=== PATIENT | male | born 1950 | race Caucasian/White ===

== ENCOUNTER 2018-09-15 09:02 | Emergency (ER) | payer MEDICARE ==
[2018-09-15 09:16] VITALS: BP 133/80
--- NOTE | 2018-09-15 09:38 | UC ---
Laceration HPI - HPI Summary HPI Summary: small laceration left big toe x 2 hrs cut his toe as he was trimming his toes small cut but could not stop the bleeding pt. is no Eliquis - History Of Current Complaint Chief Complaint: UCLaceration Stated Complaint: LAC ON TOE Time Seen by Provider: 09/15/18 09:04 Hx Obtained From: Patient Laceration Location: Toe - left great toe Mechanism Of Injury: Sharp Trauma Onset/Duration: Sudden Onset, Lasting Hours - 2, Still Present Severity: Moderate Pain Intensity: 0 - Allergies/Home Medications Allergies/Adverse Reactions: Allergies Allergy/AdvReac Type Severity Reaction Status Date / Time hydrocodone Allergy Swelling Verified 09/15/18 09:16 Of Face,Lips,& Throat Home Medications: Home Medications Amlodipine Besylate [Amlodipine 2.5 mg tab] 2.5 mg PO DAILY 09/15/18 [History Confirmed 09/15/18] Clorazepate TAB* [Tranxene TAB*] 7.5 mg PO DAILY PRN 09/15/18 [History Confirmed 09/15/18] Multivitamin [Multivitamins] 1 cap PO DAILY 09/15/18 [History Confirmed 09/15/18 ] PMH/Surg Hx/FS Hx/Imm Hx - Additional Past Medical History Additional PMH: bladder ca Cardiovascular History: Atrial Fibrillation - Surgical History Surgical History: Yes Surgery Procedure, Year, and Place: bladder tumor removed (CYSTOSCOPIES X2);. appendectomy. CABG. AVR - Family History Known Family History: Positive: None, Cardiac Disease, Hypertension Family History: CAD - Social History Alcohol Use: None Alcohol Amount: 4 drinks a day Substance Use Type: None Smoking Status (MU): Former Smoker Type: Cigarettes Amount Used/How Often: 2-3 cigarettes daily Have You Smoked in the Last Year: Yes When Did the Patient Quit Smoking/Using Tobacco: TRIED TO QUIT 03/2015 - Immunization History Most Recent Influenza Vaccination: 2013 Most Recent Tetanus Shot: unknown Most Recent Pneumonia Vaccination: 7-8 years ago Review of Systems All Other Systems Reviewed And Are Negative: Yes Constitutional: Positive: Negative Skin: Positive: Negative Eyes: Positive: Negative ENT: Positive: Negative Respiratory: Positive: Negative Cardiovascular: Positive: Negative Is Patient Immunocompromised?: No Physical Exam Triage Information Reviewed: Yes Appearance: Well-Appearing, No Pain Distress, Well-Nourished Vital Signs: Initial Vital Signs Temp 97.4 F 03/22/19 09:09 Pulse 72 09/15/18 09:09 Resp 14 09/15/18 09:09 BP 133/80 09/15/18 09:09 Pulse Ox 100 09/15/18 09:09 Vital Signs Reviewed: Yes Eye Exam: Normal Eyes: Positive: Conjunctiva Clear ENT: Positive: Normal ENT inspection, Hearing grossly normal, Pharynx normal Neck: Positive: Supple, Nontender, No Lymphadenopathy Respiratory: Positive: Chest non-tender, Lungs clear, Normal breath sounds Cardiovascular: Positive: RRR, No Murmur, Pulses Normal Skin: Positive: Other - small laceration left big toe , no need for repair bleeding was stopped by applying pressure pressure dressing was placed Laceration Course/Dx - Diagnosis Provider Diagnosis: Laceration of toe Discharge - Sign-Out/Discharge Documenting (check all that apply): Patient Departure All imaging exams completed and their final reports reviewed: No Studies - Discharge Plan Condition: Stable Disposition: HOME Patient Education Materials: Laceration Without Closure (ED) Referrals: Tremayne Hitchcock MD [Primary Care Provider] - If Needed Additional Instructions: apply pressure if started bleeding again follow up as needed - Billing Disposition and Condition Condition: STABLE Disposition: Home
== END 2018-09-15 09:32 | disposition home or self-care (01) ==
LOC: UCEAST 09:02
DX: S91.312A Laceration without foreign body, left foot, initial encounter (principal); Z87.891 Personal history of nicotine dependence; Z88.5 Allergy status to narcotic agent; W22.8XXA Striking against or struck by other objects, initial encounter; Y92.9 Unspecified place or not applicable
CPT/HCPCS: 99211; G0463

== ENCOUNTER 2018-12-24 13:43 | Emergency (ER) | payer MEDICARE ==
--- NOTE | 2018-12-24 14:14 | ED ---
HPI Chest Pain - HPI Summary HPI Summary: 68 year old M presenting to [facility] with a chief complaint of grabbing chest pain radiating across his chest lasting for 30 minutes at 21:30 last night while making dinner. Now, patient is having chest tightness and back pain. The patient rates the pain 1/10 in severity. Symptoms aggravated by nothing. Symptoms alleviated by nothing. Patient denies nausea, diaphoresis. - History of Current Complaint Chief Complaint: EDChestPainROMI Time Seen by Provider: 12/24/18 14:05 Hx Obtained From: Patient Onset/Duration: Started Hours Ago - 21:30 yesterday, Still Present Timing: Intermittent, Lasting Minutes - 30 Current Severity: Mild Pain Intensity: 1 Pain Scale Used: 0-10 Numeric Character: Other: - grabbing Aggravating Factor(s): Nothing Alleviating Factor(s): Nothing Associated Signs and Symptoms: Positive: Negative - nausea, diaphoresis, Other: - chest tightness, back pain - Additional Pertinent History Primary Care Physician: CHARLENE - Allergy/Home Medications Allergies/Adverse Reactions: Allergies Allergy/AdvReac Type Severity Reaction Status Date / Time hydrocodone Allergy Swelling Verified 09/15/18 09:16 Of Face,Lips,& Throat Home Medications: Home Medications Rivaroxaban TAB(*) [Xarelto 20 mg] 20 mg PO DAILY 12/24/18 [History Confirmed ] PMH/Surg Hx/FS Hx/Imm Hx Previously Healthy: No Endocrine/Hematology History: Reports: Hx Anemia Denies: Hx Diabetes, Hx Thyroid Disease Cardiovascular History: Reports: Hx Angina, Hx Atrial Fibrillation, Hx Congestive Heart Failure - MAR 2015, Hx Hypertension, Hx Valvular Heart Disease - AORTIC BICUSPID Denies: Hx Coronary Artery Disease, Hx Hypercholesterolemia, Hx Myocardial Infarction, Hx Pacemaker/ICD Comment Only: Other Cardiovascular Problems/Disorders - A-FIB Respiratory History: Reports: Hx Pneumonia, Other Respiratory Problems/ Disorders - pulmonary nodule 04/05/16 admission Denies: Hx Asthma, Hx Chronic Obstructive Pulmonary Disease (COPD) History: Reports: Hx Benign Prostatic Hyperplasia, Other Problems/ Disorders - enlarged prostate, history bladder cancer Denies: Hx Dialysis, Hx Renal Disease Musculoskeletal History: Denies: Hx Arthritis, Hx Rheumatoid Arthritis, Hx Osteoporosis Sensory History: Reports: Hx Contacts or Glasses, Hx Glaucoma - borderline, Hx Hearing Problem - tinnitis Denies: Hx Hearing Aid Opthamlomology History: Reports: Hx Contacts or Glasses, Hx Glaucoma - borderline Neurological History: Denies: Hx Seizures, Hx Transient Ischemic Attacks (TIA) Psychiatric History: Reports: Hx Substance Abuse - ETOH Denies: Hx Panic Disorder - Cancer History Cancer Type, Location and Year: bladder - Surgical History Surgery Procedure, Year, and Place: bladder tumor removed (CYSTOSCOPIES X2);. appendectomy. CABG. AVR - Immunization History Date of Tetanus Vaccine: Out of date Date of Influenza Vaccine: Fall 2012 Infectious Disease History: No Infectious Disease History: Denies: Hx Shingles, Hx Tuberculosis, Traveled Outside the [place] in Last 30 Days - Family History Known Family History: Positive: Cardiac Disease, Hypertension Family History: CAD - Social History Alcohol Use: None Alcohol Amount: 4 drinks a day Hx Substance Use: No Substance Use Type: Reports: None Hx Tobacco Use: Yes Smoking Status (MU): Former Smoker Type: Cigarettes Amount Used/How Often: 2-3 cigarettes daily Have You Smoked in the Last Year: Yes Review of Systems Negative: Skin Diaphoresis Positive: Chest Pain Negative: Nausea Positive: Other - back pain All Other Systems Reviewed And Are Negative: Yes Physical Exam - Summary Physical Exam Summary: Appearance: The patient is well-nourished in no acute distress and in no acute pain. Skin: The skin is warm and dry and skin color reflects adequate perfusion. HEENT: The head is normocephalic and atraumatic. The pupils are equal and reactive. The conjunctivae are clear and without drainage. Nares are patent and without drainage. Mouth reveals moist mucous membranes and the throat is without erythema and exudate. The external ears are intact. The ear canals are patent and without drainage. The tympanic membranes are intact. Neck: The neck is supple with full range of motion and non-tender. There are no carotid bruits. There is no neck vein distension. Respiratory: Chest is non-tender. Lungs are clear to auscultation and breath sounds are symmetrical and equal. Cardiovascular: Heart is regular rate and rhythm. There is no murmur or rub auscultated. There is no peripheral edema and pulses are symmetrical and equal. Abdomen: The abdomen is soft and non-tender. There are normal bowel sounds heard in all four quadrants and there is no organomegaly palpated. Musculoskeletal: There is no back tenderness noted. Extremities are non-tender with full range of motion. There is good capillary refill. There is no peripheral edema or calf tenderness elicited. Neurological: Patient is alert and oriented to person, place and time. The patient has symmetrical motor strength in all four extremities. Cranial nerves are grossly intact. Deep tendon reflexes are symmetrical and equal in all four extremities. Psychiatric: The patient has an appropriate affect and does not exhibit any anxiety or depression Triage Information Reviewed: Yes Vital Signs On Initial Exam: Initial Vitals Temp Pulse Resp BP Pulse Ox 96.9 F 75 18 146/84 100 12/24/18 13:53 12/24/18 13:53 12/24/18 13:53 12/24/18 13:53 12/24/18 13:53 Vital Signs Reviewed: Yes Diagnostics - Vital Signs Vital Signs Temp Pulse Resp BP Pulse Ox 12/24/18 13:53 96.9 F 75 18 146/84 100 - Laboratory Result Diagrams: 12/24/18 14:05 12/24/18 14:05 Lab Statement: Any lab studies that have been ordered have been reviewed, and results considered in the medical decision making process. - Radiology CXR Radiology Interpretation Completed By: Radiologist Summary of Radiographic Findings: HYPERINFLATED LUNG CASTAÑEDA. NO DEFINITE PNEUMONIA IS NOTED. ED physician has reviewed this report. - EKG 1347 Cardiac Rate: NL - 74 BPM EKG Rhythm: Atrial Fibrillation EKG Comparison: No Significant Change - 06/15/16 Summary of EKG Findings: Atrial fibrillation with controlled ventricular response. Unchanged from 06/15/16 Chest Pain Course/Dx - Course Course Of Treatment: Mr. Freed presented having had a severe back radiating into the front chest pain last evening at 2130. He had been working strenuously earlier in the day. The pain resolved but he continues with a tightness in the lower part of his neck and upper back and front of the upper chest. He was nontoxic in appearance with stable vital signs. EKG was unchanged from his previous in 2016 aside from the fact that he is in controlled atrial fibrillation now. He has been in controlled atrial fibrillation previously and an EKG in 2015 looks very similar. I could not reproduce the pain. He was kept on a monitor and observed while labs including a delayed troponin were obtained. On re-eval he was no longer complaining of the pain. I think this is most likely a musculoskeletal pain. I don't think anything dangerous is happening but I recommended he follow-up tomorrow with his PCP for further evaluation. - Diagnoses Provider Diagnoses: Chest pain Discharge - Sign-Out/Discharge Documenting (check all that apply): Patient Departure - Discharge Patient Received Moderate/Deep Sedation with Procedure: No - Discharge Plan Condition: Stable Disposition: HOME Patient Education Materials: Chest Pain (ED) Referrals: Tremayne Hitchcock MD [Primary Care Provider] - 2 Days Additional Instructions: Follow up with your primary care provider in 2 days. Return to the Emergency Department for new or worsening symptoms. - Billing Disposition and Condition Condition: STABLE Disposition: Home - Attestation Statements Document Initiated by Usamaibe: Yes Documenting Scribe: Kimmy Shirley Provider For Whom Jean Carlos is Documenting (Include Credential): Navneet Mcneil MD Scribe Attestation: Kimmy Mccain, scribed for Navneet Mcneil MD on 12/25/18 at 1047. Scribe Documentation Reviewed: Yes Provider Attestation: The documentation as recorded by the Kimmy darnell accurately reflects the service I personally performed and the decisions made by me, Navneet Mcneil MD Status of Scribe Document: Viewed
[2018-12-24 14:34] LABS: ABS Basophils 0.1 10^3/ul (0-0.2); ABS Eosinophils 0.1 10^3/ul (0-0.6); ABS Lymphocytes 1.4 10^3/ul (1.0-4.8); ABS Monocytes 0.4 10^3/ul (0-0.8); ABS Neutrophils 2.5 10^3/ul (1.5-7.7); Eosinophil % 2.2 %; Hematocrit 38 % (42-52); Hemoglobin 12.7 g/dL (14.0-18.0); Lymphocyte % 31.4 %; Mean Corpuscular HGB Conc 34 g/dL (31-36); Mean Corpuscular Hemoglobin 31 pg (27-31); Mean Corpuscular Volume 93 fL (80-94); Mean Platelet Volume 7.7 fL (7.4-10.4); Nucleated Red Blood Cells % 0.1; Platelet Count 169 10^3/uL (150-450); Red Blood Count 4.07 10^6 /uL (4.18-5.48); Red Cell Distribution Width 13 % (10-15); White Blood Count 4.6 10^3/uL (3.5-10.8)
[2018-12-24 14:43] LABS: INR 1.27 (0.82-1.09)
[2018-12-24 14:52] LABS: Albumin 4.2 g/dL (3.2-5.2); Albumin/Globulin Ratio 1.6 (1-3); BUN/Creatinine Ratio 15.5 (8-20); Calcium 9.4 mg/dL (8.6-10.3); EGFR African American 86.4 (>60); EGFR Non-African American 71.4 (>60); Globulin 2.7 g/dL (2-4); Total Bilirubin 0.6 mg/dL (0.2-1.0); Total Protein 6.9 g/dL (6.4-8.9)
[2018-12-24 19:14] VITALS: BP 148/102
== END 2018-12-24 19:13 | disposition home or self-care (01) ==
LOC: ED 13:43
DX: R07.9 Chest pain, unspecified (principal); I48.91 Unspecified atrial fibrillation; I50.9 Heart failure, unspecified; I11.0 Hypertensive heart disease with heart failure; Z87.891 Personal history of nicotine dependence; Z79.01 Long term (current) use of anticoagulants
CPT/HCPCS: 36415; 71046; 80053; 84484; 85025; 85610; 93005; 99282

== ENCOUNTER 2019-11-27 12:40 | Inpatient (IN) ==
[2019-11-27 13:23] LABS: ABS Basophils 0.1 10^3/ul (0-0.2); ABS Eosinophils 0.2 10^3/ul (0-0.6); ABS Lymphocytes 1.5 10^3/ul (1.0-4.8); ABS Monocytes 0.4 10^3/ul (0-0.8); Eosinophil % 3.7 %; Hematocrit 38 % (42-52); Lymphocyte % 33.1 %; Mean Corpuscular HGB Conc 35 g/dL (31-36); Mean Corpuscular Hemoglobin 32 pg (27-31); Mean Corpuscular Volume 94 fL (80-94); Mean Platelet Volume 7.6 fL (7.4-10.4); Nucleated Red Blood Cells % 0.1; Platelet Count 185 10^3/uL (150-450); Red Blood Count 4.03 10^6 /uL (4.18-5.48); Red Cell Distribution Width 13 % (10-15); White Blood Count 4.5 10^3/uL (3.5-10.8)
[2019-11-27 13:37] LABS: INR 1.36 (0.82-1.09)
[2019-11-27 13:46] LABS: Albumin 4.2 g/dL (3.2-5.2); Albumin/Globulin Ratio 1.6 (1-3); BUN/Creatinine Ratio 20.4 (8-20); Calcium 8.7 mg/dL (8.6-10.3); EGFR African American 81.6 (>60); EGFR Non-African American 67.4 (>60); Globulin 2.6 g/dL (2-4); Potassium 4.2 mmol/L (3.5-5.0); Total Bilirubin 0.6 mg/dL (0.2-1.0); Total Protein 6.8 g/dL (6.4-8.9)
[2019-11-27 13:47] LABS: Troponin I 0.01 ng/mL (<0.03)
[2019-11-27 14:05] LABS: Magnesium 1.8 mg/dL (1.9-2.7)
[2019-11-27] MEDS ORDERED: Magnesium Sulfate 2 gm BAG 2 GM/50 ML BAG IVPB ONE (14:06)
[2019-11-27] MEDS: Rivaroxaban 20 mg TAB (*) PO SCH (19:38)
[2019-11-28] MEDS ORDERED: Regadenoson 0.4 MG/5 ML SYRINGE ONE (09:33)
[2019-11-28] MEDS ORDERED: Aminophylline 25 MG/ML VIAL ONE (09:33)
[2019-11-28 12:07] LABS: BUN/Creatinine Ratio 16.8 (8-20); Calcium 9.1 mg/dL (8.6-10.3); EGFR African American 82.4 (>60); EGFR Non-African American 68.1 (>60)
[2019-11-28] MEDS ORDERED: Lidocaine 1% w EPI 1:100,000 MDV 20 ML VIAL ONE (14:18)
[2019-11-28] MEDS: Rivaroxaban 20 mg TAB (*) PO SCH (21:03)
[2019-11-29 05:30] LABS: BUN/Creatinine Ratio 21.3 (8-20); Calcium 8.7 mg/dL (8.6-10.3); EGFR African American 81.6 (>60); EGFR Non-African American 67.4 (>60); Magnesium 1.9 mg/dL (1.9-2.7)
[2019-11-29] MEDS ORDERED: fentaNYL 100 mcg/2 ml 50 MCG/ML VIAL ONE (14:04)
[2019-11-29] MEDS ORDERED: Midazolam 5 mg/5 ml VIAL 1 mg/ml 5 ml VIAL (5 mg) ONE (14:04)
[2019-11-29] MEDS ORDERED: Naloxone 0.4 mg VIAL 0.4 mg/ml 1 ml VIAL ONE (14:05)
[2019-11-29] MEDS ORDERED: Flumazenil 0.5 mg/5 ml 0.1 MG/ML 5 ml VIAL ONE (14:05)
[2019-11-29] MEDS: Rivaroxaban 20 mg TAB (*) PO SCH (21:28)
[2019-11-30] MEDS ORDERED: Magnesium Sulfate 2 gm BAG 2 GM/50 ML BAG IVPB ONE (08:01)
[2019-11-30 11:20] VITALS: BP 105/61
== END 2019-11-30 13:15 | disposition home or self-care (01) | DRG 309 ==
LOC: ED 12:40 → MEDTELE 12:40 → OBSVTOIN 16:44 → MEDTELE 17:04
PROVIDERS: ADMIT Internal Medicine; ATTEND Internal Medicine

== ENCOUNTER 2022-04-12 17:51 | Observation (INO) ==
[2022-04-12 20:24] LABS: ABS Basophils 0.1 10^3/ul (0-0.2); ABS Eosinophils 0.1 10^3/ul (0-0.6); ABS Lymphocytes 2.1 10^3/ul (1.0-4.8); ABS Monocytes 0.6 10^3/ul (0-0.8); Eosinophil % 1.6 %; Hematocrit 39 % (42-52); Hemoglobin 12.9 g/dL (14.0-18.0); Lymphocyte % 36.7 %; Mean Corpuscular HGB Conc 33 g/dL (31-36); Mean Corpuscular Hemoglobin 31 pg (27-31); Mean Corpuscular Volume 94 fL (80-94); Mean Platelet Volume 7.5 fL (7.4-10.4); Nucleated Red Blood Cells % 0.1; Platelet Count 187 10^3/uL (150-450); Red Blood Count 4.13 10^6 /uL (4.18-5.48); Red Cell Distribution Width 13 % (10-15); White Blood Count 5.8 10^3/uL (3.5-10.8)
[2022-04-12 20:41] LABS: ALT 21 U/L (7-52); AST 26 U/L (13-39); Albumin 4.2 g/dL (3.2-5.2); Albumin/Globulin Ratio 1.6 (1-3); Alkaline Phosphatase 53 U/L (35-149); Anion Gap 5 mmol/L (2-11); Blood Urea Nitrogen 30 mg/dL (6-24); C Reactive Protein < 1.00 mg/L (<8.01); CO2 Carbon Dioxide 28 mmol/L (22-32); Chloride 107 mmol/L (101-111); Globulin 2.6 g/dL (2-4); Glucose 77 mg/dL (70-100); Potassium 4.3 mmol/L (3.5-5.0); Sodium 140 mmol/L (135-145); Total Protein 6.8 g/dL (6.4-8.9); eGFR CKD-EPI 65.2 (>60)
[2022-04-12] MEDS ORDERED: Iohexol 350 (CONTRAST) 500 ML MDV IV ONE (20:53)
[2022-04-13 02:11] LABS: Cholesterol 111 mg/dL; HDL Cholesterol 45.3 mg/dL; LDL Cholesterol 55 mg/dL; Triglycerides 55 mg/dL
[2022-04-13 02:12] LABS: Erythrocyte Sed Rate 8 mm/Hr (0-19)
[2022-04-13 06:46] LABS: ABS Basophils 0.1 10^3/ul (0-0.2); ABS Eosinophils 0.1 10^3/ul (0-0.6); ABS Monocytes 0.5 10^3/ul (0-0.8); ABS Neutrophils 2.3 10^3/ul (1.5-7.7); Eosinophil % 2.4 %; Hematocrit 37 % (42-52); Hemoglobin 12.1 g/dL (14.0-18.0); Lymphocyte % 39.2 %; Mean Corpuscular HGB Conc 33 g/dL (31-36); Mean Corpuscular Hemoglobin 31 pg (27-31); Mean Corpuscular Volume 94 fL (80-94); Mean Platelet Volume 7.6 fL (7.4-10.4); Nucleated Red Blood Cells % 0.2; Platelet Count 173 10^3/uL (150-450); Red Blood Count 3.89 10^6 /uL (4.18-5.48); Red Cell Distribution Width 13 % (10-15); White Blood Count 5.1 10^3/uL (3.5-10.8)
[2022-04-13 07:06] LABS: Albumin 3.6 g/dL (3.2-5.2); Albumin/Globulin Ratio 1.6 (1-3); Calcium 8.5 mg/dL (8.6-10.3); Globulin 2.2 g/dL (2-4); Total Bilirubin 0.4 mg/dL (0.2-1.0); Total Protein 5.8 g/dL (6.4-8.9); eGFR CKD-EPI 61.4 (>60)
[2022-04-13] MEDS ORDERED: Aspirin EC 81 mg TAB.EC (enteric coated) PO SCH (09:00)
[2022-04-13 15:15] VITALS: BP 139/70
== END 2022-04-13 15:26 | disposition home or self-care (01) ==
LOC: ED 17:51 → EDHOLD 17:51 → SUATTDRO 04-13 00:09 → EDHOLD 04-13 15:25
PROVIDERS: ADMIT Internal Medicine; ATTEND Hospitalist